=== PATIENT | female | born 1960 | race Caucasian/White ===

== ENCOUNTER → 2018-10-01 | Outpatient (CLI) | payer OTHER ==
[2018-10-01 17:20] LABS: CREATININE 0.8 mg/dL (0.6-1.0)
== END ==
LOC: CAT 16:22
PROVIDERS: Nurse Practitioner
DX: K46.9 Unspecified abdominal hernia without obstruction or gangrene (principal); N26.1 Atrophy of kidney (terminal)

== ENCOUNTER 2018-10-26 06:14 | Inpatient (IN) | payer OTHER ==
[~2018-10-26] VITALS: Ht 152.4 cm; Wt 101.2 kg
[~2018-10-26 06:14] MED LIST: IBUPROFEN 200200 M1 PO
[2018-10-27] MEDS ORDERED: ONDANSETRON HCL4 M2 PO (19:15)
[2018-10-27] MEDS ORDERED: ACETAMINOPHEN-1 EAC1 PO (19:16)
[2018-11-24] VITALS (9 sets, daily range): BP systolic 152–166; BP diastolic 92–99
[2018-11-24 06:44] LABS: HEMATOCRIT 43.9 % (37.0-47.0); HEMOGLOBIN 14.7 gm/dL (12.0-15.0)
--- NOTE | 2018-11-24 17:32 | NUR ---
PATIENT ARRIVED POST OF 1400. 3LNC WITH CONTINOUS PULSE OX AND EPIDERA PUMP CURRENTLY 9ML/HR. FOR PAIN CONTROL OKAY TO INCREASE EPIDERAL 1ML/HR MAX 12ML/HR. SHE IS A CURRENT VAPER SMOKER AND ADVID DRINKER OF PINT OF VODKA DAILY. TOBI QUACH FOLLOWED. FALL PRECAUTIONS IN PLACE. CALLS APPROPRIATLY.
[2018-11-25] VITALS (21 sets, daily range): BP systolic 75–234; BP diastolic 43–197
[2018-11-25 03:49] LABS: CALCIUM 7.4 mg/dL (8.5-10.1); CREATININE 0.9 mg/dL (0.6-1.0)
[2018-11-25 04:28] LABS: HEMATOCRIT 39.6 % (37.0-47.0); HEMOGLOBIN 12.9 gm/dL (12.0-15.0); MCH 30.8 pg (26.0-34.0); MCHC 32.6 g/dL (28.0-37.0); MCV 94.3 fL (80.0-100.0); PLATELET COUNT 117 thou/uL (150-400); RDW 14.6 % (10.5-14.5); WBC 2.9 thou/uL (4.0-11.0)
[2018-11-25 05:22] LABS: ANISOCYTOSIS 1+; PLATELET ESTIMATE DECREASED; POLYCHROMASIA 1+
--- NOTE | 2018-11-25 07:43 | NUR ---
Assumed care at 1845. Pt resting in bed. Still is having pain from the Ventral Hernia repair. Dressing CDI. Called ELECTRICAL DESIGNER sales commissions analyst and got fentanyl for q1h for break through pain. Epidural pump still in place running at 12ml/hr. Emptied the 2 ALKA drains. Patient is on CIWA. She was changed to Med/Surg TELE running ST. Gave metoprolol onetime. On 3L NC. No identified needs at the moment. Will continue to monitor.
[2018-11-25 09:56] LABS: URINE BILIRUBIN NEGATIVE (Negative); URINE BLOOD 1+ (Negative); URINE CLARITY CLEAR; URINE COLOR YELLOW; URINE GLUCOSE-RANDOM* NEGATIVE (Negative); URINE KETONES NEGATIVE (Negative); URINE LEUKOCYTES-REFLEX TRACE (Negative); URINE NITRITE-REFLEX NEGATIVE (Negative); URINE PROTEIN (DIPSTICK) 1+ (Negative); URINE SPECIFIC GRAVITY 1.015 (1.005-1.035)
[2018-11-25 10:07] LABS: SQUAMOUS 0-3 Few /LPF (0-3)
[2018-11-25 10:08] LABS: CRYSTALS None Seen /LPF (None Seen); HYALINE CASTS 0-3 Few /LPF (None Seen)
[2018-11-25 10:09] LABS: URINE RBC 0-2 Rare /HPF (0-2); URINE WBC-REFLEX 6-15 Few /HPF (0-5)
[2018-11-25 10:10] LABS: AMP/METHAMP Negative (Negative); BARBITURATES Negative (Negative); BENZODIAZEPINES POSITIVE (Negative); COCAINE Negative (Negative); METHADONE Negative (Negative); OPIATES POSITIVE (Negative); PCP Negative (Negative)
--- NOTE | 2018-11-25 14:41 | NUR ---
TOWARDS POC PT A/O X4, VSS, FEBRILE, PROVIDER AWARE. NO NV. EPIDURAL DRIP ONGOING. PRN PAIN MEDS GIVEN. ALKA DRAIN INTACT AND PATENT. PROVENA DRESSING INTACT. ABDOMINAL BINDER IN PLACE. PT ABLE TO SIT UP TO BED WITH A LOT OF PAIN ON MOVT. SAENZ CATH IN PLACE DRAINING WELL. CAPNOMETER IN PLACE. FREQUENT ROUNDING IN PATIENT ROOM. WILL CONTINUE TO MONITOR.
--- NOTE | 2018-11-25 19:00 | NUR ---
PT ARRIVED TO ROOM 214, PT IS TACHYPNEIC AND C/O PAIN. PT STATES SHE HAS INCREASING SOA, TEMP 101 NOTED. ON 4L/NC. EPIDURAL INFUSING. PT REPORTS FEELING ANXIOUS, "I DON'T LIKE HOSPITALS". REPORT GIVEN TO ONCOMING NURSE.
[2018-11-25 23:23] LABS: HCO3 10.7 mmol/L (22.0-26.0); PCO2 43.2 mmHg (35.0-45.0); PO2 95.3 mmHg (80.0-100.0); sO2 93.1 % (92.0-98.0)
[2018-11-25 23:26] LABS: pH 7.013 (7.360-7.450)
[2018-11-25 23:32] LABS: HEMATOCRIT 41.6 % (37.0-47.0); HEMOGLOBIN 13.1 gm/dL (12.0-15.0); MCH 30.9 pg (26.0-34.0); MCHC 31.5 g/dL (28.0-37.0); PLATELET COUNT 142 thou/uL (150-400); RBC 4.25 mil/uL (4.20-5.00); RDW 14.7 % (10.5-14.5); WBC 3.7 thou/uL (4.0-11.0)
[2018-11-25 23:45] LABS: APTT 31.4 Seconds (24.5-32.8); INR 1.2; PROTIME 12.6 Seconds (9.3-11.4)
[2018-11-25 23:49] LABS: ALBUMIN 2.1 g/dL (3.4-5.0); CALCIUM 7.8 mg/dL (8.5-10.1); MAGNESIUM 2.8 mg/dL (1.8-2.4); POTASSIUM 4.6 mmol/L (3.5-5.1); TOTAL BILIRUBIN 0.7 mg/dL (<0.1-1.0); TOTAL PROTEIN 5.4 g/dL (6.4-8.2); TROPONIN-I 0.49 ng/mL (<0.06)
[2018-11-25 23:52] LABS: CREATININE 1.9 mg/dL (0.6-1.0)
[2018-11-26] VITALS (23 sets, daily range): BP systolic 36–150; BP diastolic 13–116
[2018-11-26 00:24] LABS: ABSOLUTE NEUTROPHILS 1.7 thou/uL (1.4-8.2); METAMYELOCYTES 1 %; NUCLEATED RBCS 1 /100WBC
[2018-11-26 00:26] LABS: POLYCHROMASIA 2+
[2018-11-26 00:27] LABS: ANISOCYTOSIS 1+
[2018-11-26 01:20] LABS: BE(vivo) -10.4 mmol/L (-2 to +3); HCO3 14.5 mmol/L (22.0-26.0); PCO2 29.9 mmHg (35.0-45.0); sO2 94.6 % (92.0-98.0)
[2018-11-26 01:21] LABS: pH 7.305 (7.360-7.450)
[2018-11-26 02:16] LABS: URINE BILIRUBIN 2+ (Negative); URINE BLOOD 2+ (Negative); URINE COLOR YELLOW; URINE GLUCOSE-RANDOM* NEGATIVE (Negative); URINE KETONES TRACE (Negative); URINE LEUKOCYTES-REFLEX TRACE (Negative); URINE NITRITE-REFLEX NEGATIVE (Negative); URINE PROTEIN (DIPSTICK) 2+ (Negative); URINE SPECIFIC GRAVITY 1.025 (1.005-1.035)
[2018-11-26 02:23] LABS: URINE CLARITY HAZY
[2018-11-26 02:27] LABS: CRYSTALS None Seen /LPF (None Seen); HYALINE CASTS 0-3 Few /LPF (None Seen); MUCUS 4-6 Moderate strn/LPF (None Seen); SQUAMOUS 0-3 Few /LPF (0-3); URINE RBC 3-10 Few /HPF (0-2); URINE WBC-REFLEX 0-5 Rare /HPF (0-5); WBC CLUMPS Rare (None Seen)
--- NOTE | 2018-11-26 03:01 | NUR ---
PT ARRIVED FROM CCU AT 2245 TO ICU. PT ARRIVED WITH AUN SUPERVISOR SPECIAL EFFECTS, DR. DELGADO AND RESP THERAPISTS. PT PLACED ON MONITORS AT 2250. ON ARRIVAL, PT HAD PALPABLE PULSES, ST ON MONITOR. INTUBATED ON THE VENT. DR. ALMANZA WAS CALLED FOR LINE PLACEMENT. ALL THE CONSULTED PHYSICIANS WERE CALLED TO INFORM THEM ABOUT PT STATUS POST CODE. ARTLINE AND RIJ WERE PLACED BY DR. ALMANZA. PT WAS STARTED ON LEVOPHED, VASOPRESSIN FOR BP SUPPORT. SEIZURES WERE NOTED, NO RESPONSE FROM PATIENT. VERSED IV PUSH GIVEN TO PT PER DR. ALMANZA ORDERS. PROPOFOL GTT STARTED WELL. VERSED GTT ORDERED. PT CURRENTLY UNSTABLE, WILL CONTINUE TO MONITOR.
[2018-11-26 05:28] LABS: BE(vivo) -16.6 mmol/L (-2 to +3); HCO3 10.1 mmol/L (22.0-26.0); PCO2 27.6 mmHg (35.0-45.0); PO2 94.3 mmHg (80.0-100.0); sO2 95.5 % (92.0-98.0)
[2018-11-26 05:29] LABS: pH 7.183 (7.360-7.450)
--- NOTE | 2018-11-26 05:41 | NUR ---
PT. ARRIVED AT UNIT AROUND 185; AOX4; TACHYPNIC; C/O ABDOMINAL PAIN, FOCUS ON HER RIGHT SIDE; PAIN 05/19; SBP 170; T 101; REQUESTED PRN PAIN MEDICATION; ON EPIDURAL GTTS; ST. EPIDURAL HAS NOT HELPED WITH PAIN; HR 150's; PRN METOPROLOL GIVEN; PRN IV PAIN MEDICATION GIVEN; PRN ACETAMINOPHEN GIVEN; PULSES 2/1; HYPOACTIVE BOWEL SOUNDS; ABLE TO MOVE LEGS; DRY MOUTH; HR REASSESSMENT 130'S-140'S; ST ON TRANSFER CAR OPERATOR; PAIN RE-ASSESSMENT 04/19; REQUESTED PRN PAIN MEDICATION; EDUCATED PT. CANNOT HAVE PAIN MEDICATION BEFORE AN HOUR HAS PASSED; ST. UNDERSTANDING; HR 130'S-140'S; ST HEART RYTHM; AT [address] "04/19 ALMOST AT 05/19"; PRN IV MEDICATION GIVEN; AOX4; PULSES PRESENTS; REQUESTED TO BE TURNED ON HER L. SIDE; 4 L O2; ST. NO BEING ANXIOUS, "JUST IN PAIN"; AROUND 2199 HR 130-140'S; AT 2222 HEART MONITOR SHOWED ASYSTOLE; NURSE IN ROOM; PT. UNRESPONSIVE; CODE BLUE CALLED; PT. INTUBATED; PULSE RESTORED; TRANSFERED TO ICU; AT 2299 DR. VALDERRAMA NOTIFIED; ORDERS RECEIVED; AT 2309 DR. VIVAS CONTACTED; AT 2312 FLORIDALMA THOMPSON AND DEE BRICENO CONTACTED; NO ANSWER; VOICEL MAIL LEFT; AFTER MIDNIGHT FLORIDALMA THOMPSON CONTACTED NURSE; UPDATE GAVE;
[2018-11-26 05:42] LABS: HEMATOCRIT 41.2 % (37.0-47.0); HEMOGLOBIN 13.1 gm/dL (12.0-15.0); MCH 31.5 pg (26.0-34.0); MCHC 31.8 g/dL (28.0-37.0); PLATELET COUNT 128 thou/uL (150-400); RBC 4.16 mil/uL (4.20-5.00); RDW 14.9 % (10.5-14.5); WBC 3.7 thou/uL (4.0-11.0)
[2018-11-26 06:02] LABS: ALBUMIN 1.8 g/dL (3.4-5.0); CALCIUM 6.6 mg/dL (8.5-10.1); CREATININE 2.5 mg/dL (0.6-1.0)
[2018-11-26 06:06] LABS: POTASSIUM 6.1 mmol/L (3.5-5.1)
[2018-11-26 06:18] LABS: TOTAL BILIRUBIN 1.4 mg/dL (<0.1-1.0); TOTAL PROTEIN 5.3 g/dL (6.4-8.2)
[2018-11-26 06:42] LABS: ABSOLUTE NEUTROPHILS 2.8 thou/uL (1.4-8.2); NUCLEATED RBCS 5 /100WBC
[2018-11-26 06:43] LABS: PLATELET ESTIMATE DECREASED
[2018-11-26 07:28] LABS: PHOSPHORUS 7.1 mg/dL (2.5-4.9)
--- NOTE | 2018-11-26 07:56 | NUR ---
ORDERS RECEIVED FOR EVAL AND TREAT HOWEVER Pt TRANSFERRED TO ICU AND CODE BLUE WAS CALLED. WILL HOLD P.T. AND AWAIT NEW ORDERS TO RESUME WHEN APPROPRIATE FOR THERAPY
--- NOTE | 2018-11-26 07:57 | NUR ---
PT SEDATED ON 6 MG VERSED ON THE VENT. NO NUEROLOGICAL RESPONSE FROM PATIENT. CRITICAL ABGS HAVE BEEN COMMUNICATED TO DR. ALMANZA THIS AM. ST ON THE MONITOR, HR IN THE 130S TO 150S, WITH WIDE QRS COMPLEX AT TIMES. DR. VIVAS CALLED AND INFORMED ABOUT PT HR. NO NEW ORDERS WERE RECIEVED. ON LEVOPHED GTT AT 27 MCGS/KG/MIN, VASOPRESSIN 0.04 UNITS/MIN, NEOSYN AT 50 MCGS/MIN. PT STARTED ON BICARB GTT PER DR. ALMANZA ORDERS. HATTIE BAKER INFORMED ABOUT SCANT URINE OUTPUT. OG IN PLACE, AND OUTPUT NOTED. MID ABD DRESSING IN PLACE, NOT DRAINING, CLAYTON DRESSING NOTED FUCTIONING. PT WAS BROUGHT FROM CCU WITH THE NONFUCTIONAL DRESSING. ALKA DRAINS IN PLACE, OUTPUT NOTED. EPIDURAL WAS DISCONNETTED DURING THE CODE. REMOVED BY RN, AND DRESSING PLACED ON SITE. PT'S FRIEND FLORIDALMA AT BEDSIDE DURING THE NIGHT. SHE INFORMED ME PT WAS A DNR. DNR PAPERWORK, COPIED AND PLACED IN CHART. DR. ALMANZA AND HATTIE BAKER INFORMED ABOUT PT CODE STATUS. REPORT GIVEN TO SONYA DUKES. TALKED TO HATTIE LING THIS AM. WILL CONTINUE TO MONITOR
--- NOTE | 2018-11-26 08:25 | EKG ---
[place] [address] [facility] 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: MAYNOR : 1960 Requested By: Timothy Rodriges Order Number: [id number] MD: Aldo Theodore Measurements Intervals [place] Rate: 136 P: 101 OR: 196 QRS: 68 QRSD: 85 T: -13 QT: 297 QTc: 447 Interpretive Statements Sinus tachycardia Borderline prolonged OR interval Low voltage Poor R wave progression Baseline wander in lead(s) I,III,aVL,V1,V6 Compared to ECG 10/27/2018 18:43:22 Atrial fibrillation no longer present Electronically Signed On 11-26-2018 8:24:55 CDT by Aldo Theodore [email or web address] ��������������������������������������������� <ELECTRONICALLY SIGNED> ���������������������������������������� By: Aldo Theodore MD, [facility] ��������������������������������������������� 11/26/18 0824 2346 2346 Aldo Theodore MD, [facility] /EPI
--- NOTE | 2018-11-26 08:27 | EKG ---
[place] [address] [facility] 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 : 1960 Requested By: Timothy Rodriges Order Number: [id number] MD: Aldo Theodore Measurements Intervals [place] Rate: 132 P: 25 FL: 154 QRS: -45 QRSD: 90 T: 6 QT: 279 QTc: 414 Interpretive Statements Sinus tachycardia Abnormal R-wave progression, late transition Inferior infarct, old Low voltage Compared to ECG 10/27/2018 18:43:22 Inferior Q waves are more prominent Electronically Signed On 11-26-2018 8:26:55 CDT by Aldo Theodore [email or web address] ��������������������������������������������� <ELECTRONICALLY SIGNED> ���������������������������������������� By: Aldo Theodore MD, [facility] ��������������������������������������������� 11/26/18 0826 0739 0739 Aldo Theodore MD, [facility] /EPI
[2018-11-26 08:46] LABS: ALBUMIN 1.7 g/dL (3.4-5.0); CALCIUM 6.9 mg/dL (8.5-10.1); CREATININE 2.9 mg/dL (0.6-1.0); PHOSPHORUS 10.1 mg/dL (2.5-4.9)
[2018-11-26 09:03] LABS: POTASSIUM 6.2 mmol/L (3.5-5.1)
--- NOTE | 2018-11-26 10:35 | NUR ---
SUMMARY: WAS ON THE VENT BEGINNING OF MY SHIFT, SEDATED AND NO RESPONSE NOTED. DR. ANDRADE CONFERENCED WITH FAMILY FRIENDS/DPOAs, PATIENT ALREADY DNR. WAITED FOR PATIENT'S EX- TO ARRIVE. ALL IN AGREEMENT TO WITHDRAW CARE. EXTUBATED AND 1005 AND PATIENT AT 1016 AND PRONOUNCED BY 2RNS PER ORDER.
--- NOTE | 2018-11-26 11:00 | HC ---
[facility] [place] [address] CONSULTATION Name: BILL RODRIGUEZ Room #: 239-P ADM IN M.R.#: [id number] Admission: 11/24/18 ������������������ Attend Phys: Noe Knott Discharge: ������������������ Date of : 62 Report #: [id number] THIS REPORT FOR: //name// CC: David Shepard DATE OF SERVICE: 11/25/2018 REASON FOR CONSULTATION: I was asked to evaluate concerning postoperative fever. HISTORY OF PRESENT ILLNESS: The patient is a 57-year-old obese woman with an incarcerated ventral hernia with associated abdominal wall mesh. He was taken to surgery on 11/24/[address] Shepard where release of multiple adhesions. Incarcerated bowel was released. There were no intraoperative complications noted. She did undergo extensive abdominal wall repair. Postoperatively, she has had temperature up to 38 degrees. She has been in significant amount of abdominal pain. She has had intermittent cough with no sputum production. No hemoptysis. No rash. Urine output has been reasonable. She has had no bowel output. There has been no vomiting. She remains on oxygen per nasal cannula. She did receive cefoxitin as her perioperative antibiotic prophylaxis. ALLERGIES: PENICILLIN, but does tolerate cephalosporins. MEDICATIONS: As noted on her MAR. PAST MEDICAL HISTORY: Kidney stones, obstructive sleep apnea, chronic pain, right orbital fracture, hysterectomy, postoperative infection with this. Lithotripsy of her kidney stones. FAMILY HISTORY: Noncontributory. SOCIAL HISTORY: Significant alcohol intake and tobacco use. REVIEW OF SYSTEMS: No rashes, neurologic or psychiatric complaints. A 10-point review was otherwise negative other than what has been described above. PHYSICAL EXAMINATION: VITAL SIGNS: Temperature was 38 degrees, hemodynamically stable. GENERAL: She was alert and cooperative. She was splinting in reaction to her right upper quadrant pain. Peripheral IV in place. EYES: Nonicteric. MOUTH: No mucositis. NECK: Supple. LUNGS: Decreased breath sounds in the bases bilaterally without consolidation. HEART: Regular, without murmur. [facility] [address] [place] [address] CONSULTATION Name: MICHAELBILL SHIRA Room #: 239- ADM IN M.R.#: [id number] Admission: 11/24/18 ������������������ Attend Phys: Noe Knott Discharge: ������������������ Date of : 62 Report #: [id number] ABDOMEN: Diffusely tender, distended. Midline abdominal incisional VAC in place. ALKA drains with serosanguineous output. EXTREMITIES: Without clubbing, cyanosis or edema. Minimal peripheral edema. Cranial nerves intact. Strength in upper and lower extremities is normal. Mood normal. LABORATORY STUDIES: Creatinine 0.9. Hemoglobin 12.9. WBC 2.9 with a 45% segs, 24% bands, platelet count 117,000. Procalcitonin 0.59. Urinalysis unremarkable. IMPRESSION: A 57-year-old, postoperative day #1 from extensive abdominal surgery, now with low grade fever. Although it has only been a day it is possible we could be going into DTs, noting her alcohol intake. Other consideration would be atelectasis and poor respiratory function due to her abdominal pain. Seems too early for intraabdominal infection. No evidence of a urinary tract infection. Drug fever seems less likely. Although liver appeared normal at laparotomy, it is still possible that we are dealing with alcoholic liver injury, noting her neutropenia, mild thrombocytopenia. This will need to be followed. 1. Obesity. 2. Hypertension. 3. Nephrolithiasis. RECOMMENDATIONS: We will continue with ceftriaxone, pending cultures, blood, sputum. Obtain chest x-ray. Continue with incentive spirometry and increase pulmonary clearance of secretions. Follow ALKA drain output and follow up laboratory studies including CBC and CMP. ��������������������������������������������� <ELECTRONICALLY SIGNED> ���������������������������������������� By: Twin Tabor MD ��������������������������������������������� 11/26/18 1100 1151 0030 Twin Tabor MD /nt
--- NOTE | 2018-11-26 16:05 | PATH ---
[facility] [place] [address] PATHOLOGY RPT PROCEDURE Name: BILL RODRIGUEZ Room #: 239-P [facility] IN M.R.#: [id number] ������������������ Admission: 11/24/18 ������������������ Date of : 62 Discharge: 11/26/18 Report #: [id number] Path Case #: [id number] [facility] Accession Number: [id number] . 01 Material submitted: . PART A: abdomen - MESH FROM ABDOMEN PART B: appendix - APPENDIX PART C: hernia - INCARCERATED HERNIA CONTENTS . 01 Clinical history: . Ventral hernia . 02 Diagnosis: A. Mesh from abdomen, removal: - 17.5 cm metal mesh material with adherent sutures (gross exam only). . B. Appendix, appendectomy: - WELL-DIFFERENTIATED NEUROENDOCRINE TUMOR, CARCINOID TUMOR MEASURING 7 MM IN GREATEST DIMENSION. - Mild focal acute appendicitis. - Proximal margin widely free of malignancy, 8.0 cm away and mesoappendix margin 2.5 mm away. . C. Incarcerated hernia contents, repair: - Congested fibrovascular connective tissue with reactive changes, compatible with hernia sac. . (IUV:pit 11/25/2018) . Surgical Pathology Cancer Case Summary . Protocol posting date: January 2017 . APPENDIX NEUROENDOCRINE TUMOR . Procedure ___ Appendectomy . Tumor Site ___ Distal half of appendix . Tumor Size Greatest dimension (centimeters): 0.7 cm . Histologic Type and Grade ___ G1: Well-differentiated neuroendocrine tumor . Mitotic Rate [facility] [address] [place] [address] PATHOLOGY RPT PROCEDURE Name: MICHAELBILL SHIRA Room #: 239-P [facility] IN M.R.#: [id number] ������������������ Admission: 11/24/18 ������������������ Date of : 62 Discharge: 11/26/18 Report #: [id number] Path Case #: [id number] ___ <2 mitoses/2mm2 . Ki-67 Labeling Index ___ <3% . Tumor Extension ___ Tumor invades the subserosa/mesoappendix without involvement of visceral peritoneum . Margins ___ All margins are uninvolved by tumor Margins examined: Proximal, Distal and Mesoappendix. Distance of tumor from closest margin (millimeters or centimeters): 2.5 mm Specify closest margin: Mesoappendix . Lymphovascular Invasion ___ Not identified . Perineural Invasion ___ Not identified . Regional Lymph Nodes ___ No lymph nodes submitted . Pathologic Stage Classification (pTNM, AJCC 8th Edition) . Primary Tumor (pT) ___ pT1: Tumor 2 cm or less in greatest dimension Regional Lymph Nodes (pN) ___ pNX: Regional lymph nodes cannot be assessed Distant Metastasis ___ pMx: Unknown . (IUV: 11/25/2018) QTP/11/26/2018 . 02 Comment: Properly controlled synaptophysin, chromogranin, and Ki-67 are performed on block B1. The tumor shows strong reactivity with synaptophysin, scant reactivity with chromogranin and shows less than 3% Ki-67 labeling index. These findings are incorporated into the synoptic report assembled. . Co-review: Dr. Janny Soto. . Findings are discussed with Dr. Silas Shepard in the afternoon of 11/25/2018. (IUV:[facility] 11/25/2018) [address] [address] PATHOLOGY RPT PROCEDURE Name: BILL RODRIGUEZ Room #: 239-P DIS IN M.R.#: [id number] ������������������ Admission: 11/24/18 ������������������ Date of : 62 Discharge: 11/26/18 Report #: [id number] Path Case #: [id number] . 02 Electronically signed: . Lacey Orr MD, Pathologist NPI- [id number] . 01 Gross description: . A. The specimen is received in formalin, labeled "bruce Melendez from abdomen". Received is a segment of dusky reddy-garrison mesh with adherent sutures and metal measuring 17.5 x 10.5 x 1.0 cm in greatest dimensions. Gross photographs are taken. Sections are not submitted. . B. The specimen is received in formalin, labeled "Bill Rodriguez, appendix". Received is a vermiform appendix measuring 8.4 cm in length by up to 0.9 cm in diameter with a large amount of attached mesoappendix. The serosal surface is pink-reddy and glistening in appearance. The proximal margin is inked. Sectioning reveals a pinpoint to slightly patent lumen, which appears to become occluded at the distal tip screening representative sections are submitted in cassettes B1 and B2, with the proximal margin and bisected tip submitted in cassette B2. . C. The specimen is received in formalin, labeled "Bill Rodriguez, incarcerated hernia contents". Received are multiple segments of fibroadipose tissue with adherent fibromembranous tissue measuring 16.8 x 8.2 x 2.7 cm in aggregate dimensions. No distinct nodules or lesions are noted grossly. The specimen is submitted representatively in cassette C1. (CAA; 11/24/2018) QAC/QAC . 02 Pathologist provided ICD-10: C7A.1, K35.80, K43.6 . 02 CPT . 206536, 977525, 401635, I14195, D68638, 911957 Specimen Comment: A courtesy copy of this report has been sent to Specimen Comment: [phone], . Specimen Comment: Report sent to / DR VALDERRAMA Performed at: [facility] [address] [place] [address] [address], [place], [place] [id number] MD Julius Murillo MD Phone: [phone] Performed at: [address] [id number] MD Lacey Orr MD Phone: [phone]
== END 2018-11-26 10:16 | DRG 335 ==
LOC: EDSTATUS 06:14 → PRE 06:15 → OR 06:50 → PRE 10:23 → OR 16:17 → PRE 11-16 08:46 → 4W 11-24 05:42 → TBA 11-24 05:42 → PRE 11-24 06:19 → 4W 11-24 13:10 → PRE 11-24 16:23 → 4W 11-25 01:33 → 2N 11-25 19:00 → ICU 11-25 23:11
PROVIDERS: Emergency Medicine; Internal Medicine; Nurse Practitioner Acute Care; Specialist; ADMIT Surgery
PROC: 0DTJ0ZZ Resection of Appendix, Open Approach (ICD-10-PCS; principal; 2018-11-24)
PROC: 0WUF0JZ Supplement Abdominal Wall with Synthetic Substitute, Open Approach (ICD-10-PCS; principal; 2018-11-24)
PROC: 0JB80ZZ Excision of Abdomen Subcutaneous Tissue and Fascia, Open Approach (ICD-10-PCS; principal; 2018-11-24)
PROC: 0DN80ZZ Release Small Intestine, Open Approach (ICD-10-PCS; principal; 2018-11-24)
PROC: 02H633Z Insertion of Infusion Device into Right Atrium, Percutaneous Approach (ICD-10-PCS; 2018-11-25)
PROC: 0BH17EZ Insertion of Endotracheal Airway into Trachea, Via Natural or Artificial Opening (ICD-10-PCS; 2018-11-25)
PROC: 5A1935Z Respiratory Ventilation, Less than 24 Consecutive Hours (ICD-10-PCS; 2018-11-25)
PROC: 03HY32Z Insertion of Monitoring Device into Upper Artery, Percutaneous Approach (ICD-10-PCS; 2018-11-26)
DX: K43.0 Incisional hernia with obstruction, without gangrene (principal); J96.01 Acute respiratory failure with hypoxia; N17.9 Acute kidney failure, unspecified; E87.2 Acidosis; G93.1 Anoxic brain damage, not elsewhere classified; Z68.41 Body mass index [BMI] 40.0-44.9, adult; R57.9 Shock, unspecified; K66.0 Peritoneal adhesions (postprocedural) (postinfection); G47.33 Obstructive sleep apnea (adult) (pediatric); G89.29 Other chronic pain; E66.9 Obesity, unspecified; E78.00 Pure hypercholesterolemia, unspecified; I12.9 Hypertensive chronic kidney disease with stage 1 through stage 4 chronic kidney disease, or unspecified chronic kidney disease; D69.6 Thrombocytopenia, unspecified; R73.9 Hyperglycemia, unspecified; R74.0 Nonspecific elevation of levels of transaminase and lactic acid dehydrogenase [LDH]; D72.819 Decreased white blood cell count, unspecified; I95.9 Hypotension, unspecified; I48.0 Paroxysmal atrial fibrillation; N18.9 Chronic kidney disease, unspecified; Z88.0 Allergy status to penicillin; Z87.442 Personal history of urinary calculi; Z90.710 Acquired absence of both cervix and uterus; I46.9 Cardiac arrest, cause unspecified
CPT/HCPCS: 10047; 10203; 50010; 50093; 50101; 50386; 50455; 51114; 51412; 51437; 51712; 56525; 56527; 56530; 57092; 57103; 57193; 62110; 62900; 65075; 70005; 85014; 85026

== ENCOUNTER 2018-10-27 17:59 | Emergency (ER) | payer OTHER ==
[~2018-10-27] VITALS: Ht 157.5 cm; Wt 91.2 kg
[2018-10-27 19:05] LABS: ABSOLUTE NEUTROPHILS 3.7 thou/uL (1.4-8.2); BASOPHILS 1.1 % (0.0-2.0); EOSINOPHILS 5.4 % (0.0-3.0); HEMATOCRIT 45.3 % (37.0-47.0); HEMOGLOBIN 15.3 gm/dL (12.0-15.0); LYMPHOCYTES 24.6 % (24.0-44.0); MCH 31.8 pg (26.0-34.0); MCHC 33.7 g/dL (28.0-37.0); MCV 94.4 fL (80.0-100.0); MONOCYTES 10.6 % (1.0-8.0); PLATELET COUNT 188 thou/uL (150-400); POLYS 58.3 % (36.0-66.0); RDW 14.7 % (10.5-14.5); WBC 6.4 thou/uL (4.0-11.0)
[2018-10-27 19:13] LABS: ANION GAP 11 mmol/L (7-16); BUN 16 mg/dL (7-18); CALCIUM 8.8 mg/dL (8.5-10.1); CHLORIDE 104 mmol/L (98-107); CO2 27 mmol/L (21-32); CREATININE 0.9 mg/dL (0.6-1.0); GLUCOSE 118 mg/dL (74-106); POTASSIUM 3.7 mmol/L (3.5-5.1); SODIUM 142 mmol/L (136-145)
[2018-10-27] MEDS ORDERED: ONDANSETRON HCL4 M2 PO (19:15)
[2018-10-27] MEDS ORDERED: ACETAMINOPHEN-1 EAC1 PO (19:16)
[2018-10-27 19:21] LABS: ALBUMIN 3.3 g/dL (3.4-5.0); LIPASE 114 U/L (73-393); SGOT 40 U/L (15-37); SGPT 50 U/L (30-65); TOTAL BILIRUBIN 0.1 mg/dL (<0.1-1.0); TOTAL PROTEIN 8.1 g/dL (6.4-8.2); TROPONIN-I <0.06 ng/mL (<0.06)
[2018-10-27 20:17] LABS: URINE BILIRUBIN NEGATIVE (Negative); URINE BLOOD TRACE (Negative); URINE CLARITY CLEAR; URINE COLOR YELLOW; URINE GLUCOSE-RANDOM* NEGATIVE (Negative); URINE KETONES NEGATIVE (Negative); URINE LEUKOCYTES-REFLEX NEGATIVE (Negative); URINE NITRITE-REFLEX NEGATIVE (Negative); URINE PROTEIN (DIPSTICK) 2+ (Negative); URINE SPECIFIC GRAVITY 1.025 (1.005-1.035); URINE UROBILINOGEN 0.2 E.U./dl (0.2-1.0)
[2018-10-27 20:25] LABS: CASTS None Seen /LPF (None Seen); SQUAMOUS 0-3 Few /LPF (0-3)
[2018-10-27 20:26] LABS: CRYSTALS None Seen /LPF (None Seen); URINE RBC 0-2 Rare /HPF (0-2); URINE WBC-REFLEX 6-15 Few /HPF (0-5)
[2018-10-27 21:59] VITALS: BP 155/105
--- NOTE | 2018-10-28 17:55 | EKG ---
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 ��������������������������������������������� 10/28/18 1754 1843 1843 Aldo Theodore MD, FACC /EPI
== END 2018-10-27 22:00 | disposition home or self-care (01) ==
LOC: ER 17:59
PROVIDERS: Emergency Medicine
DX: K59.00 Constipation, unspecified (principal); Z87.891 Personal history of nicotine dependence; Z88.0 Allergy status to penicillin; Z98.890 Other specified postprocedural states; Z90.710 Acquired absence of both cervix and uterus; Z87.442 Personal history of urinary calculi